=== PATIENT | male | born 1985 | race Hispanic/Latino ===

== ENCOUNTER 2016-12-24 23:28 | Emergency (ER) | payer MEDICAID, OTHER ==
[2016-12-24 23:39] VITALS: O2SAT 99
--- NOTE | 2016-12-25 00:07 | ED.PDOC ---
History of Present Illness - General Chief Complaint: General Stated Complaint: dizzy,pain,nose bleeds Time Seen by Provider: 12/24/16 23:35 Source: patient, RN notes reviewed, Vital Signs reviewed, family Exam Limitations: no limitations - History of Present Illness Initial Comments: This patient is a 31 y/o male with a convoluted history. I had difficulty getting a good timeline with his story. He reports that he has had headaches and seizures which have worsened today. Patient reports that he has stomach cancer with mets to his brain. He does not have any primary physicians or specialists at this time. He was fired from his prior PCP due to "his ex- being positive for meth" on a UDS. He states he was fired and the physician would no longer talk to him, nor send referrals. He has an appointment at [facility] next week. However, he cannot wait until then because of the pain. His past medications were Soma, Hydrocodone/APAP, metoprolol, and something else for hypertension. He has had none of these medications since being fired of which I cannot get a good date. He says he gets his care from the ED in [place], however the doctors there treat him badly. Although he was apparently diagnosed with gastric cancer several months ago, he has not been referred to an oncologist or surgeon. Nor does he have a neurologist for his seizures. He reports his seizures are grand mal seizures without any incontinence. He had at least two witnessed seizures today. This patient is a very poor historian, and I get the feeling that there may be some secondary gain , however will make that ultimate decision after all tests have been performed. Nursing tried to get IV, however was unable to as "patient has used them all up. 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 Timing/Duration: unsure, getting worse Severity: severe Improving Factors: nothing Worsening Factors: nothing Associated Symptoms: headaches, loss of appetite, other - coughing up blood Allergies/Adverse Reactions: Allergies NO KNOWN ALLERGY Allergy (Verified 12/25/16 00:29) Home Medications: Ambulatory Orders Fluticasone Prop 0.05% Nasal [Flonase Nasal [place]] 2 spray BNAS DAILY #1 bottle 12/25/16 Omeprazole 40 mg PO DAILY #30 cap 12/25/16 Sulfamethoxazole-Trimethoprim [Bactrim Ds 800-160 mg] 1 tab PO BID #28 tab 12/25 Past Medical History (General) - Patient Medical History Hx Cardiac Disorders: Yes Hx Cancer: Yes - Vaccination History Hx Influenza Vaccination: Yes - Triage Comment ED Triage Comment: pt states to try to see next week in [place], his PCP "fired him" from his care Family Medical History - Family History Father Family History: Unknown Physical Exam - Physical Exam General Appearance: Alert, Comfortable, No apparent distress Eye Exam: bilateral normal Ears, Nose, Throat: hearing grossly normal, normal ENT inspection, other - posterior pharyngeal swelling on right (coinsides with neck tenderness on right) Neck: full range of motion, tender lateral - Right sided tenderness and fullness Respiratory: lungs clear, normal breath sounds, no respiratory distress, no accessory muscle use Cardiovascular/Chest: regular rate, rhythm, no edema, no murmur Gastrointestinal/Abdominal: normal bowel sounds, soft, guarding, tenderness - generalized abdominal tenderness with increased tenderness in upper abdomen Back Exam: normal inspection, no CVA tenderness Extremity: normal range of motion, non-tender Neurologic: alert, oriented x 3 Progress - Progress Progress: 12/25/16 01:28 CT head/soft tissues of neck: Mucous retention cysts sphenoid sinuses, mucosal thickening ethmoid air cells, fluid and mucosal thickening right maxillary sinus , dental disease Abdominal/pelvis CT: No acute abnormality - Results/Orders Results/Orders: 12/24/16 12/25/16 23:36 00:50 Pulse Rate [ 86 68 Left] Respiratory 18 Rate Blood Pressure 114/70 101/54 [Left Arm] O2 Sat by Pulse 99 99 Oximetry 12/25/16 00:01 Hold Metformin x 48Hrs [id number] 12/25/16 00:13 Chest,2 Views [RAD] Stat Laboratory Results WBC 9.8 K/mm3 (4.8-10.8) 12/25/16 00:02 RBC 4.33 M/mm3 (4.70-6.10) L 12/25/16 00:02 Hgb 13.5 gm/dL (14.0-18.0) L 12/25/16 00:02 Hct 39.7 % (42.0-52.0) L 12/25/16 00:02 MCV 91.7 fl (80.0-94.0) 12/25/16 00:02 MCH 31.1 pg (27.0-31.0) H 12/25/16 00:02 MCHC 34.0 g/dL (33.0-37.0) 12/25/16 00:02 RDW 14.6 % (11.5-14.5) H 12/25/16 00:02 Plt Count 340 K/mm3 (130-400) 12/25/16 00:02 MPV 7.4 fl (7.40-10.4) 12/25/16 00:02 Absolute Neuts (auto) 6.00 K/uL (1.8-6.8) 12/25/16 00:02 Absolute Lymphs (auto) 2.70 K/uL (1.0-3.4) 12/25/16 00:02 Absolute Monos (auto) 0.60 K/uL (0.2-0.8) 12/25/16 00:02 Absolute Eos (auto) 0.30 K/uL (0.0-0.4) 12/25/16 00:02 Absolute Basos (auto) 0.10 K/uL (0.0-0.1) 12/25/16 00:02 Neutrophils % 61.5 % (42.0-78.0) 12/25/16 00: Lymphocytes % 27.9 % (20.0-50.0) 12/25/16 00: Monocytes % 6.4 % (2.0-9.0) 12/25/16 00: Eosinophils % 3.0 % (1.0-5.0) 12/25/16 00:02 Basophils % 1.2 % (0.0-2.0) 12/25/16 00:02 Sodium 141 mmol/L (135-145) 12/25/16 00:02 Potassium 4.6 mmol/L (3.6-5.0) 12/25/16 00:02 Chloride 107 mmol/L (101-111) 12/25/16 00:02 Carbon Dioxide 24 mmol/L (21-31) 12/25/16 00:02 Anion Gap 14.6 (12-18) 12/25/16 00:02 BUN 11 mg/dL (7-18) 12/25/16 00:02 Creatinine 0.69 mg/dL (0.6-1.3) 12/25/16 00:02 BUN/Creatinine Ratio 15.9 (10-20) 12/25/16 00:02 Random Glucose 89 mg/dL (70-105) 12/25/16 00:02 Serum Osmolality 280.1 mOsm/L (275-295) 12/25/16 00:02 Calcium 9.0 mg/dL (8.4-10.2) 12/25/16 00:02 Magnesium 2.1 mg/dL (1.8-2.5) 12/25/16 00:02 Total Bilirubin 0.9 mg/dL (0.2-1.0) 12/25/16 00:02 AST 18 IU/L (10-42) 12/25/16 00:02 ALT 15 IU/L (10-60) 12/25/16 00:02 Alkaline Phosphatase 55 IU/L (42-121) 12/25/16 00:02 Serum Total Protein 7.7 gm/dL (6.4-8.2) 12/25/16 00:02 Albumin 3.9 g/dl (3.2-5.5) 12/25/16 00:02 Globulin 3.8 gm/dL (2.3-3.5) H 12/25/16 00:02 Albumin/Globulin Ratio 1.0 (1.1-1.9) L 12/25/16 00:02 - EKG/XRAY/CT CT Ordered: Yes CT Interpretation Call Back: No - See Progress for results Departure - Departure Clinical Impression: Dental caries, Gastritis Acute sinusitis Qualifiers: Sinusitis location: ethmoidal Recurrence: not specified Qualifier Code: (J01.20 ) Acute ethmoidal sinusitis, unspecified Time of Disposition: :30 Disposition: Discharge to Home or Self Care Condition: Good Departure Forms: ED Discharge - Pt. Copy, Patient Portal Self Enrollment Instructions: Sinusitis, DI for Sinusitis, Gastritis, DI for Gastritis Diet: resume usual diet Prescriptions: Sulfamethoxazole-Trimethoprim [Bactrim Ds 800-160 mg] 1 tab PO BID #28 tab Fluticasone Prop 0.05% Nasal [Flonase Nasal [place]] 2 spray BNAS DAILY #1 bottle Omeprazole 40 mg PO DAILY #30 cap Home Medications: Ambulatory Orders Fluticasone Prop 0.05% Nasal [Flonase Nasal [place]] 2 spray BNAS DAILY #1 bottle 12/25/16 Omeprazole 40 mg PO DAILY #30 cap 12/25/16 Sulfamethoxazole-Trimethoprim [Bactrim Ds 800-160 mg] 1 tab PO BID #28 tab 12/25 Additional Instructions: NetiPot - use twice daily - mix salt packet with distilled water Keep appointment at [facility] next week
--- NOTE | 2016-12-25 00:55 | CT ---
PROCEDURE: Head CLINICAL HISTORY: 31 years Male Headache/seizures/stated hx of mets to brain COMPARISON: None. TECHNIQUE: Contiguous axial images were obtained through the head without IV contrast. FINDINGS: The ventricles and sulci appear unremarkable.No abnormal areas of decreased density are identified.No acute hemorrhage.No mass lesions.Fluid in mucosal thickening in the right maxillary sinus with near-complete opacification of the right maxillary sinus. Mild mucosal thickening within some ethmoid air cells. Tiny mucous retention cyst within the sphenoid sinuses.No depressed calvarial fractures. IMPRESSION: No acute intracranial abnormality is identified. CT following IV contrast or MRI following IV contrast could be obtained to better evaluate if indicated. Paranasal sinus inflammatory changes as described. Electronically signed by: John Paul Rodrigez MD 12/25/2016 12:55 AM [employer]
--- NOTE | 2016-12-25 00:56 | CT ---
EXAM DESCRIPTION: Abdoment/Pelvis w/o Contrast CLINICAL HISTORY: Abd pain/stated hx of gastric Ca COMPARISON: None Available TECHNIQUE: Contiguous axial images of the abdomen and pelvis were obtained followed by reconstruction images. FINDINGS: Linear opacities within the lung bases may represent scar versus subsegmental atelectasis. There is atherosclerosis. The liver, spleen, pancreas and kidneys are within normal limits. There is no hydronephrosis or renal stones. The gallbladder is unremarkable by CT criteria. Adrenal glands are within normal limits. Aorta is of normal caliber and tapering. There is no free fluid in the abdomen or pelvis. There is no bowel obstruction. There is no stranding of the mesenteric fat to suggest an inflammatory response. The appendix is within normal limits. There is no pericecal inflammation. There are subcentimeter lymph nodes within the right groin. Partially visualized focal skin thickening at the right groin. Correlation with physical exam recommended. IMPRESSION: No acute intra-abdominal abnormality Partially visualized focal skin thickening at the right groin. Correlation with physical exam recommended. Small lymph nodes at the right groin could represent reactive lymph nodes. Electronically signed by: Emeka Santana MD 12/24/2016 10:[address] [facility]
--- NOTE | 2016-12-25 01:03 | CT ---
EXAM DESCRIPTION: Soft Tissue Neck CLINICAL HISTORY: 31 years,Male,Pharyngeal swelling R/neck pain R COMPARISON: None. TECHNIQUE: Contiguous axial images were obtained through the neck without IV contrast. Reformatted images obtained. FINDINGS: The facial structures were incompletely imaged on this study.The parotid glands, submandibular glands and thyroid gland appear unremarkable.The lung apices are clear.The pharynx and larynx appear unremarkable. The epiglottis appears unremarkable.Scattered lymph nodes which are most likely reactive. No definite mass lesion is visualized on this unenhanced study.Fluid and mucosal thickening in the right maxillary sinus. Mild mucosal thickening within some ethmoid air cells. Small mucous retention cysts in the sphenoid sinuses.Dental disease involving multiple mandibular and maxillary teeth.The cervical spinal canal appears congenitally small. IMPRESSION: Paranasal sinus inflammatory changes as described. Dental disease involving multiple teeth. Without Electronically signed by: John Paul Rodrigez MD 12/25/2016 1:02 AM [employer]
[2016-12-25] MEDS ORDERED: LIDOCAINE VIS-MYLANTA 30 ML UD PO ONE (01:25)
[2016-12-25] MEDS ORDERED: KETOROLAC TROMETHAMINE INJ 60 MG/2 ML VIAL IM ONE (01:26)
[2016-12-25] MEDS ORDERED: SULFA/TRIMETH 800/160 (DS) TAB 1 EA TAB PO ONE (01:36)
[2016-12-25 02:10] VITALS: BP 106/69
--- NOTE | 2017-01-03 14:08 | RAD ---
EXAM DESCRIPTION: Chest,2 Views CLINICAL HISTORY: 31 years,Male,Hemoptysis COMPARISON: 01/15/2011. FINDINGS: The cardiomediastinal silhouette appears unremarkable. Questionable opacity on the PA view in the left retrocardiac region. Follow-up could be obtained.No pleural effusions.No pneumothorax. IMPRESSION: Questionable opacity in the left retrocardiac region. Short term follow-up or CT imaging could be obtained to further evaluate. Electronically signed by: John Paul Rodrigez MD 12/25/2016 12:45 AM CALL OR CONTACT CENTRE MANAGER
== END 2016-12-25 02:05 | disposition home or self-care (01) ==
LOC: ER 23:28
DX: J01.20 Acute ethmoidal sinusitis, unspecified (principal); K02.9 Dental caries, unspecified; K29.70 Gastritis, unspecified, without bleeding; Z85.9 Personal history of malignant neoplasm, unspecified; F19.90 Other psychoactive substance use, unspecified, uncomplicated
CPT/HCPCS: 70450; 70490; 71020; 74176; 80053; 83735; 85025; J1885

== ENCOUNTER → 2019-09-10 | Outpatient (CLI) | payer OTHER ==
--- NOTE | 2019-09-10 12:24 | RAD ---
EXAM DESCRIPTION: Hand,Right 2 Views CLINICAL HISTORY: PAIN IN RIGHT HAND COMPARISON: None Available. TECHNIQUE: AP, LATERAL, AND OBLIQUE FINDINGS: Two-view right hand shows healing fracture of the proximal fourth metacarpal with extensive bridging callus along the radial aspect. The fracture line is still visible with sclerotic sclerotic margins and continued follow-up is recommended to make sure this eventually heals. Developing nonunion cannot be excluded. There is no underlying lytic bone lesion. There are no significant arthritic changes. Metallic foreign body is seen in the dorsal aspect of the index finger overlying the Asa the middle phalanx. This measures 1.2 mm. Degenerative changes are seen at the first metacarpal phalangeal joint. IMPRESSION: Partially healed fracture of the proximal right fourth metacarpal. Small metallic foreign body in the dorsal index finger. Electronically signed by: Shane Schwartz MD 09/10/2019 12:22 PM CDT
== END ==
LOC: RAD 09:42
PROVIDERS: ATTEND Nurse Practitioner Family
DX: S62.304A Unspecified fracture of fourth metacarpal bone, right hand, initial encounter for closed fracture (principal); S60.450A Superficial foreign body of right index finger, initial encounter